=== PATIENT | female | born 1960 | race Caucasian/White ===

== ENCOUNTER 2017-11-24 12:58 | Inpatient (IN) | payer BC ==
[~2017-11-24] VITALS: Ht 165.1 cm; Wt 92.0 kg
[~2017-11-24 12:58] MED LIST: AML5T PO; ASPI81CH43 PO; LISI-646 PO; METO25TA4 PO; SERT-274 PO
[2017-11-24 13:44] LABS: Basophils # (auto) 0.1 uL; Basophils % (auto) 0.7 % (0.0-2.0); Eosinophils # (auto) 0.1 uL; Eosinophils % (auto) 0.9 % (0.0-7.0); Hematocrit 43.3 % (36.0-46.0); Hemoglobin 14.6 g/dL (12.2-16.2); Lymphocytes # (auto) 1.6 uL; Lymphocytes % (auto) 18.7 % (10.0-50.0); Mean Corpuscular Hemoglobin 29.1 pg (28.0-32.0); Mean Corpuscular Hgb Conc. 33.6 g/dL (32.0-36.0); Mean Corpuscular Volume 86.6 fL (80.0-100.0); Monocytes # (auto) 0.7 uL; Monocytes % (auto) 8.2 % (0.0-12.0); Neutrophils # (auto) 6.3 uL; Neutrophils % (auto) 71.5 % (37.0-80.0); Nucleated Red Blood Cells % 0.1 %; Platelet Count (auto) 259 10^3/uL (140-450); Red Cell Distribution Width 13.8 % (11.8-14.3); White Blood Cell 8.8 10^3/uL (4.4-10.8)
[2017-11-24 13:55] LABS: INR 0.97 (0.9-1.15); Partial Thromboplastin Time 25.5 sec (23.78-33.04); Prothrombin Time 10.4 sec (9.27-12.13)
[2017-11-24] MEDS ORDERED: LISINOPRIL 20 MG TAB PO ONE (14:00)
[2017-11-24] MEDS ORDERED: LORazepam 2MG/ML-1ML VIAL IV PRN (14:00)
[2017-11-24] MEDS ORDERED: THIAMINE HCL 100 MG TAB PO ONE (14:00)
[2017-11-24] MEDS ORDERED: SERTRALINE HCL 50 MG TAB PO ONE (14:00)
[2017-11-24] MEDS ORDERED: ONDANSETRON HCL 4 MG/2 ML VIAL IV PRN (14:00)
[2017-11-24] MEDS ORDERED: METOPROLOL SUCCINATE XL 50 MG TAB PO ONE (14:00)
[2017-11-24 14:04] LABS: BUN/Creatinine Ratio 10.1; Bilirubin, Total 0.6 mg/dL (0.2-1.0); Calcium 9.1 mg/dL (8.5-10.1); Total Protein 7.5 g/dL (6.4-8.2)
[2017-11-24] MEDS: SODIUM CHLORIDE 0.9% 1,000 ML IV SCH (16:45)
[2017-11-24] MEDS: MORPHINE SULF INJ 2 MG/ML SYRINGE 1ML IV PRN (18:56)
[2017-11-24 22:00] VITALS: BP 137/82
[2017-11-25] MEDS: MORPHINE SULF INJ 2 MG/ML SYRINGE 1ML IV PRN ×4 (00:17→22:02)
[2017-11-25 05:00] VITALS: BP 141/79
[2017-11-25] MEDS: SODIUM CHLORIDE 0.9% 1,000 ML IV SCH (07:00)
[2017-11-25 08:00] VITALS: BP 148/75
[2017-11-25] MEDS: LISINOPRIL 20 MG TAB PO SCH (08:55)
[2017-11-25] MEDS: METOPROLOL SUCCINATE XL 50 MG TAB PO SCH (08:56)
[2017-11-25 09:00] VITALS: BP 148/75
[2017-11-25] MEDS ORDERED: BUPIVACAINE W/ EPINEPH 0.25% INJ 50ML MDV ONE (09:38)
[2017-11-25] MEDS ORDERED: BUPIVACAINE 0.25% INJ 50ML VIAL ONE (09:39)
[2017-11-25] MEDS ORDERED: ceFAZolin 1GM/50ML 50 ML IV ONE (09:39)
[2017-11-25] MEDS ORDERED: fentaNYL CITRATE 5 ML ONE (10:04)
[2017-11-25] MEDS ORDERED: MIDAZOLAM HCL 1MG/1ML-2 ML VIAL ONE ×2 (10:04→13:03)
[2017-11-25] MEDS ORDERED: SUCCINYLCHOLINE CHLORIDE 20 MG/ML 10ML VIAL IV ONE (10:05)
[2017-11-25] MEDS ORDERED: PROPOFOL 10 MG/ML 20 ML IV ONE (10:11)
[2017-11-25 11:08] LABS: Urine Bacteria FEW /hpf (None Seen); Urine Blood Negative /uL (Negative); Urine Mucus FEW (None Seen); Urine Specific Gravity 1.015 (1.001-1.035); Urine WBC 4 /hpf (0 - 5)
[2017-11-25] MEDS ORDERED: ePHEDrine SULFATE 50 MG/ML AMP IV PRN (12:00)
[2017-11-25] MEDS ORDERED: MORPHINE SULF INJ 2 MG/ML SYRINGE 1ML IV PRN (12:00)
[2017-11-25] MEDS ORDERED: ONDANSETRON HCL 4 MG/2 ML VIAL IV ONE (12:00)
[2017-11-25] MEDS ORDERED: hydrALAZINE HCL 20 MG/ML VL IV PRN (12:00)
[2017-11-25] MEDS ORDERED: LIDOCAINE W/ EPINEPHRINE 2% INJ 20ML VIAL ONE (13:02)
[2017-11-25] MEDS ORDERED: ROPIVACAINE 0.5% (5MG/ML) 20ML AMPULE IJ ONE (13:02)
[2017-11-25 14:47] VITALS: BP 143/76
[2017-11-25] MEDS: THIAMINE HCL 100 MG TAB PO SCH (14:53)
[2017-11-25] MEDS: HYDROcodone-ACET 5/325MG TAB PO PRN (14:54)
[2017-11-25 16:51] VITALS: BP 128/84
[2017-11-25] MEDS: SERTRALINE HCL 50 MG TAB PO SCH (17:11)
[2017-11-25 22:00] VITALS: BP 123/71
[2017-11-26] MEDS ORDERED: MORPHINE SULFATE 4 MG/ML SYR/VIAL ONE ×2 (03:28→07:23)
[2017-11-26] MEDS: MORPHINE SULF INJ 2 MG/ML SYRINGE 1ML IV PRN ×5 (03:39→19:49)
[2017-11-26] MEDS: SODIUM CHLORIDE 0.9% 1,000 ML IV SCH ×2 (03:39→16:00)
[2017-11-26 05:00] VITALS: BP 140/80
[2017-11-26] MEDS: HYDROcodone-ACET 5/325MG TAB PO PRN ×2 (06:06→18:53)
[2017-11-26 09:00] VITALS: BP 129/72
[2017-11-26] MEDS: LISINOPRIL 20 MG TAB PO SCH (10:31)
[2017-11-26] MEDS: METOPROLOL SUCCINATE XL 50 MG TAB PO SCH (10:31)
[2017-11-26] MEDS: THIAMINE HCL 100 MG TAB PO SCH (10:31)
[2017-11-26] MEDS: SERTRALINE HCL 50 MG TAB PO SCH (10:32)
[2017-11-26 13:00] VITALS: BP 132/72
[2017-11-26 17:00] VITALS: BP 111/68
[2017-11-26 22:00] VITALS: BP 121/70
[2017-11-27] MEDS: MORPHINE SULF INJ 2 MG/ML SYRINGE 1ML IV PRN ×3 (02:29→10:54)
[2017-11-27 05:00] VITALS: BP 126/73
[2017-11-27] MEDS ORDERED: MORPHINE SULFATE 4 MG/ML SYR/VIAL ONE (06:26)
[2017-11-27 08:58] VITALS: BP 131/74
[2017-11-27] MEDS: THIAMINE HCL 100 MG TAB PO SCH (09:39)
[2017-11-27] MEDS: SODIUM CHLORIDE 0.9% 1,000 ML IV SCH (09:39)
[2017-11-27] MEDS: SERTRALINE HCL 50 MG TAB PO SCH (09:39)
[2017-11-27] MEDS: LISINOPRIL 20 MG TAB PO SCH (09:40)
[2017-11-27] MEDS: METOPROLOL SUCCINATE XL 50 MG TAB PO SCH (09:40)
[2017-11-27] MEDS ORDERED: DOCUSATE SOD 100 MG CAP PO ONE (10:15)
[2017-11-27 10:47] VITALS: BP 131/74
[2017-11-27 13:26] VITALS: BP 133/78
[2017-11-27] MEDS: HYDROcodone-ACET 5/325MG TAB PO PRN (13:53)
== END 2017-11-27 16:17 | disposition home or self-care (01) | DRG 494 ==
LOC: ER 13:03 → OVERFLOW 13:04 → CENTRAL 17:28
PROVIDERS: ADMIT Internal Medicine; ATTEND Internal Medicine
PROC: 0QSG04Z Reposition Right Tibia with Internal Fixation Device, Open Approach (ICD-10-PCS; 2017-11-25)
PROC: 0QSJ04Z Reposition Right Fibula with Internal Fixation Device, Open Approach (ICD-10-PCS; principal; 2017-11-25 09:52)
DX: S82.851A Displaced trimalleolar fracture of right lower leg, initial encounter for closed fracture (principal); E66.9 Obesity, unspecified; F32.9 Major depressive disorder, single episode, unspecified; E78.5 Hyperlipidemia, unspecified; I10 Essential (primary) hypertension; W18.39XA Other fall on same level, initial encounter; Y93.89 Activity, other specified; Z68.33 Body mass index [BMI] 33.0-33.9, adult; Y92.89 Other specified places as the place of occurrence of the external cause
CPT/HCPCS: 36415; 71045; 73600; 76000; 80053; 81001; 85025; 85610; 85730; 86850; 86900; 86901; 93005; 96360; 97163; C1713; J0330; J0690; J2250; J2704; J3490